=== PATIENT | male | born 1990 | race Native Hawaiian/Other Pacific Islander ===

== ENCOUNTER 2016-04-07 14:28 | Outpatient (CLI) | payer OTHER ==
[~2016-04-07 14:28] MED LIST: FLUT0.05 NAS; STRATTERA60 MG OR; Z-PAK PO
[2016-04-07 15:43] LABS: PLATELET COUNT 192 K/uL (142-355)
[2016-04-07 16:54] LABS: POTASSIUM 4.4 mmol/L (3.6-5.2); SODIUM 134 mmol/L (136-145)
== END 2016-04-07 19:21 | disposition home or self-care (01) ==
LOC: LAB 14:28
PROVIDERS: Nurse Practitioner Family
DX: Z00.00 Encounter for general adult medical examination without abnormal findings (principal); F90.0 Attention-deficit hyperactivity disorder, predominantly inattentive type; Z79.899 Other long term (current) drug therapy; Z51.81 Encounter for therapeutic drug level monitoring
CPT/HCPCS: 80053; 80061; 83036; 84439; 84443; 85027

== ENCOUNTER 2016-09-29 13:38 | Outpatient (CLI) | payer OTHER ==
[2016-09-29 15:13] LABS: PLATELET COUNT 209 K/uL (142-355)
[2016-09-29 15:15] LABS: POTASSIUM 4.2 mmol/L (3.6-5.2); SODIUM 134 mmol/L (136-145)
== END 2016-09-29 14:40 | disposition home or self-care (01) ==
LOC: LAB 13:38
PROVIDERS: Nurse Practitioner Family
DX: F90.2 Attention-deficit hyperactivity disorder, combined type (principal); E78.4 Other hyperlipidemia; Z79.899 Other long term (current) drug therapy; Z51.81 Encounter for therapeutic drug level monitoring
CPT/HCPCS: 80053; 80061; 82306; 82607; 83036; 84436; 84443; 85027

== ENCOUNTER 2017-01-05 13:48 | Outpatient (CLI) | payer OTHER ==
[2017-01-05 14:27] LABS: PLATELET COUNT 217 K/uL (142-355)
[2017-01-05 16:24] LABS: POTASSIUM 4.9 mmol/L (3.6-5.2); SODIUM 136 mmol/L (136-145)
== END 2017-01-05 21:12 | disposition home or self-care (01) ==
LOC: LAB 13:48
PROVIDERS: Nurse Practitioner Family
DX: Z79.899 Other long term (current) drug therapy (principal); Z51.81 Encounter for therapeutic drug level monitoring; E78.4 Other hyperlipidemia; F90.2 Attention-deficit hyperactivity disorder, combined type
CPT/HCPCS: 80053; 80061; 83036; 84436; 84443; 85027

== ENCOUNTER 2017-07-11 14:05 | Outpatient (CLI) | payer OTHER ==
[2017-07-11 15:13] LABS: PLATELET COUNT 178 K/uL (142-355)
[2017-07-11 15:38] LABS: POTASSIUM 3.7 mmol/L (3.6-5.2)
== END 2017-07-11 22:32 | disposition home or self-care (01) ==
LOC: LAB 14:05
PROVIDERS: Nurse Practitioner Family
DX: E78.4 Other hyperlipidemia (principal); F90.2 Attention-deficit hyperactivity disorder, combined type; Z79.899 Other long term (current) drug therapy; Z51.81 Encounter for therapeutic drug level monitoring
CPT/HCPCS: 80053; 80061; 83036; 84436; 84443; 85027

== ENCOUNTER 2019-10-17 13:37 | Emergency (ER) | payer OTHER ==
[~2019-10-17] VITALS: Ht 162.6 cm; Wt 81.6 kg
[2019-10-17 13:45] VITALS: TEMP 98.9
[2019-10-17] MEDS ORDERED: CLONIDINE HYDR0.2 MG PO (13:56)
[2019-10-17] MEDS ORDERED: LIPITOR20 MG PO (13:57)
[2019-10-17 14:28] LABS: PLATELET COUNT 190 K/uL (142-355)
[2019-10-17 14:34] LABS: POTASSIUM 3.8 mmol/L (3.6-5.2); SODIUM 140 mmol/L (136-145)
[2019-10-17 14:46] LABS: PARTIAL THROMBOPLASTIN TIME 24.3 SECONDS (24.5-33.6)
[2019-10-17 15:00] VITALS: BP 115/70
== END 2019-10-17 15:00 | disposition home or self-care (01) ==
LOC: ED 13:37
PROVIDERS: Hospitalist
DX: R07.89 Other chest pain (principal); K21.9 Gastro-esophageal reflux disease without esophagitis
CPT/HCPCS: 36415; 80053; 82550; 83880; 84484; 85027; 85610; 85730; 93005; 99284

== ENCOUNTER 2021-06-16 09:55 | Outpatient (CLI) | payer OTHER ==
[~2021-06-16 09:55] MED LIST changes: +CLONIDINE HYDR0.2 MG PO; +LIPITOR20 MG PO
[2021-06-16 10:37] LABS: PLATELET COUNT 192 K/uL (142-355)
[2021-06-16 11:04] LABS: POTASSIUM 4.5 mmol/L (3.6-5.2)
== END 2021-06-16 18:58 | disposition home or self-care (01) ==
LOC: LABW 09:55
PROVIDERS: ATTEND Internal Medicine
DX: R80.8 Other proteinuria (principal); I12.9 Hypertensive chronic kidney disease with stage 1 through stage 4 chronic kidney disease, or unspecified chronic kidney disease; N18.9 Chronic kidney disease, unspecified; Z79.899 Other long term (current) drug therapy
CPT/HCPCS: 36415; 80053; 82043; 82550; 82570; 83036; 83735; 84100; 84155; 84165; 84166; 84439; 84443; 85027

== ENCOUNTER 2021-08-31 09:31 | Outpatient (CLI) | payer OTHER | END 2021-08-31 18:57 | disposition home or self-care (01) | LOC: LABW 09:31 | PROVIDERS: ATTEND Internal Medicine | DX: R80.8 Other proteinuria (principal) | CPT/HCPCS: 36415; 81000; 82043; 82570; 83516; 84156; 85652; 86038; 86225; 86255 ==

== ENCOUNTER 2021-09-03 08:16 | Outpatient (CLI) | payer OTHER | END 2021-09-03 21:09 | disposition home or self-care (01) | LOC: US 08:16 | PROVIDERS: ATTEND Internal Medicine | DX: R80.8 Other proteinuria (principal) ==

== ENCOUNTER 2022-06-06 08:15 | Outpatient (CLI) | payer OTHER ==
[2022-06-06 08:50] LABS: PLATELET COUNT 207 K/uL (142-355)
[2022-06-06 09:08] LABS: POTASSIUM 4.7 mmol/L (3.6-5.2)
== END 2022-06-06 19:11 | disposition home or self-care (01) ==
LOC: LABW 08:15
PROVIDERS: ATTEND Internal Medicine
DX: R80.8 Other proteinuria (principal); R73.9 Hyperglycemia, unspecified
CPT/HCPCS: 36415; 80053; 81002; 82043; 82550; 82570; 83036; 84156; 85027